=== PATIENT | female | born 1965 | race Caucasian/White ===

== ENCOUNTER 2018-10-29 11:36 | Emergency (ER) | payer OTHER ==
[~2018-10-29] VITALS: Ht 160 cm; Wt 70.3 kg
[2018-10-29] MEDS ORDERED: NORFLEX100MG PO (14:48)
[2018-10-29] MEDS ORDERED: KETO10TA2 PO (14:48)
== END 2018-10-29 15:38 | disposition home or self-care (01) ==
LOC: ER 11:36
DX: M54.5 Low back pain (principal)